=== PATIENT | male | born 2000 | race Hispanic/Latino ===

== ENCOUNTER 2019-03-07 23:48 | Emergency (ER) | payer OTHER ==
[2019-03-07 23:54] VITALS: BP 129/89; PULSE 88; RESP 18; TEMP 98; O2SAT 97
[2019-03-07] MEDS ORDERED: Sodium Chloride 0.9% 1,000 ML IV STA (23:57)
[2019-03-08 00:34] LABS: BASO # 0.1 K/uL (0.0-0.2); BASO % 0.7 % (0.0-2.0); EOS # 0.4 K/uL (0.0-0.7); EOS % 3.5 % (0.0-4.0); HEMOGLOBIN 15.9 g/dL (12.0-18.0); LYMPH # 4.4 K/uL (1.0-4.3); MEAN CELL VOLUME 91.3 fl (80.0-94.0); MEAN CORPUSCULAR HEMOGLOBIN 31.6 pg (27.0-31.0); MEAN CORPUSCULAR HGB CONC 34.6 g/dL (33.0-37.0); MEAN PLATELET VOLUME 8.3 fl (7.2-11.7); MONO # 0.9 K/uL (0.0-0.8); MONO % 8.5 % (0.0-10.0); NEUT % 46.3 % (50.0-75.0); NRBC % 0.1 % (0.0-0.0); RBC 5.03 Mil/uL (4.40-5.90); RED CELL DISTRIBUTION WIDTH 12.7 % (11.5-14.5); WHITE BLOOD COUNT 10.8 K/uL (4.8-10.8)
[2019-03-08 00:44] LABS: ALBUMIN 4.7 g/dL (3.5-5.0); BLOOD UREA NITROGEN 18 mg/dl (9-20); CALCIUM 9.2 mg/dL (8.4-10.2); GFR NON-AFRICAN AMERICAN > 60
[2019-03-08 00:45] LABS: ALB/GLOB RATIO 1.8 (1.0-2.1); ALT/SGPT 23 U/L (21-72); AST/SGOT 25 U/L (17-59)
--- NOTE | 2019-03-08 01:25 | ED PDOC ---
HPI: Psych/Substance Abuse Time Seen by Provider: 03/07/19 23:53 Chief Complaint (Nursing): Alcohol Ingestion Chief Complaint (Provider): Alcohol Ingestion History Per: Patient, EMS, Other ([facility] [employer]: Ann Chavez ) History/Exam Limitations: intoxication Additional Complaint(s): 18 years old male brought in by [facility] after bring called to [facility]. On arrival with patient, [facility] sales representative jewelry, Dipika Chavez, reports she was notified that patient was at a campus event in game room, drinking vodka and began to have uncontrolled vomiting. Patient is minimally responsive verbally. He is retching but has full movement of extremities. Vitals stable. PMD: None provided Past Medical History Reviewed: Historical Data, Nursing Documentation, Vital Signs Vital Signs: Last Vital Signs Temp 98 F 03/07/19 23:52 Pulse 88 03/07/19 23:52 Resp 18 03/07/19 23:52 BP 129/89 03/07/19 23:52 Pulse Ox 97 03/07/19 23:52 - Medical History PMH: No Chronic Diseases - Surgical History Surgical History: No Surg Hx - Family History Family History: States: Unknown Family Hx - Social History Alcohol: Social - Allergies Allergies/Adverse Reactions: Allergies Allergy/AdvReac Type Severity Reaction Status Date / Time peanut Allergy RASH Verified 03/07/19 23:51 Review of Systems Review Of Systems: ROS cannot be obtained secondary to pt's inabilty to answer questions. Physical Exam - Reviewed Nursing Documentation Reviewed: Yes Vital Signs Reviewed: Yes - Physical Exam Appears: Positive for: No Acute Distress (Smells of alcohol) Head Exam: Positive for: ATRAUMATIC, NORMOCEPHALIC Skin: Positive for: Normal Color, Warm, Dry Eye Exam: Positive for: Normal appearance, EOMI, PERRL Neck: Positive for: Normal, Painless ROM, Supple Cardiovascular/Chest: Positive for: Regular Rate, Rhythm. Negative for: Murmur Respiratory: Positive for: Normal Breath Sounds. Negative for: Respiratory Distress Gastrointestinal/Abdominal: Positive for: Normal Exam, Soft. Negative for: Tenderness Back: Positive for: Normal Inspection. Negative for: L CVA Tenderness, R CVA Tenderness Extremity: Positive for: Normal ROM. Negative for: Pedal Edema, Deformity Neurological/Psych: Positive for: Awake, Alert, Oriented (x2. Disoriented to date, able to provide name and state he is in the hospital) - Laboratory Results Result Diagrams: 03/08/19 00:28 03/08/19 00:28 Lab Results: Total Bilirubin 0.5 mg/dl (0.2-1.3) 03/08/19 00:28 AST 25 U/L (17-59) 03/08/19:28 ALT 23 U/L (21-72) 03/08/19:28 Alkaline Phosphatase 79 U/L (38-126) 03/08/19 00:28 Total Protein 7.3 G/DL (6.3-8.2) 03/08/19: Albumin 4.7 g/dL (3.5-5.0) 03/08/19: Globulin 2.6 gm/dL (2.2-3.9) 03/08/19 00: Albumin/Globulin Ratio 1.8 (1.0-2.1) 03/08/19 00:28 - ECG O2 Sat by Pulse Oximetry: 97 (RA) Pulse Ox Interpretation: Normal Medical Decision Making Medical Decision Making: Time: 2355 MDM: Alcohol inotication --Basic labs --IV fluids and Zofran for vomiting --Reassess patient 0215 Pt with normal labs except for alcohol of 170. Pt now awake and alert. Ambulatory without deficit. Parents present to take patient home. Scribe Attestation: Documented by Courtney Zacarias, acting as a scribe for Mckayla Ortega MD. Provider Scribe Attestation: All medical record entries made by the Scribe were at my direction and personally dictated by me. I have reviewed the chart and agree that the record accurately reflects my personal performance of the history, physical exam, medical decision making, and the department course for this patient. I have also personally directed, reviewed, and agree with the discharge instructions and disposition. Disposition - Clinical Impression Clinical Impression: Alcohol abuse with intoxication - Disposition Referrals: Alcoholics Anonymous [Outside] Disposition Time: 02:15 Condition: IMPROVED Instructions: Alcohol Use - When Is Drinking a Problem?, Effects of Alcohol on Your Health, Alcohol Poisoning (DC) Forms: [facility] (Japanese) Print Language: SPANISH
== END 2019-03-08 02:20 | disposition home or self-care (01) ==
LOC: H.ER 23:48
DX: F10.129 Alcohol abuse with intoxication, unspecified (principal)
CPT/HCPCS: 80053; 80320; 85025; 96360; 96374; 99283; J2405; J7030